=== PATIENT | female | born 1930 | race Caucasian/White ===

== ENCOUNTER → 2017-11-14 | Outpatient (CLI) | payer OTHER, BC ==
--- NOTE | 2017-11-14 12:29 | DIAGNOSTIC IMAGING REPORT ---
PET/CT SKULL-THIGH CLINICAL HISTORY: 87 years-old Female presenting with MALIGNANT NEOPLASM, concern for liver metastases, concern for osseous metastases in T11 in the right superior iliac crest, history of breast cancer diagnosed in 2015 treated with lumpectomy and chemotherapy, history of hysterectomy. TECHNIQUE: PET/CT was performed from the base of the skull through the proximal thighs following the intravenous administration of 14.988 mCi of F18-FDG. Blood glucose level 169 mg/dL. The injection was performed at 9:17 AM and imaging began at 10:[address] was performed for attenuation correction purposes and anatomic localization. COMPARISON: None. CT DOSE (mGy.cm): The estimated cumulative dose is 1156.30. FINDINGS: Head and neck: No FDG-avid mass in the visualized portion of the head or neck. No FDG avid or enlarged lymph nodes in the neck. Chest: Postsurgical changes of the left breast from prior lumpectomy. A small photopenic low-density collection consistent with seroma noted at the operative site in the posterior third of the upper inner quadrant. Overlying skin thickening of the right breast suggests post radiation change. Subcentimeter mediastinal lymph nodes, nonspecific. No FDG avid or pathologically enlarged lymph nodes. Atherosclerosis of the aorta. Normal heart size. Coronary artery calcification. No pericardial or pleural effusion. Minimal dependent changes likely atelectasis. Minimal nodularity at the dependent left lower lobe likely also atelectasis (series 2 image 99). No FDG avid focal nodule or infiltrate. Central airways patent. Abdomen and pelvis: Interval ill-defined morphologically suspicious lesions throughout the liver. However, these are not FDG avid. Moderate pancreatic parenchymal atrophy. Otherwise normal distribution of radiotracer in the gastrointestinal and genitourinary tracts. Post surgical changes of hysterectomy. Moderate stool burden in the rectum. Scattered diverticula in the colon. No bowel obstruction. No FDG avid or enlarged lymphadenopathy in the abdomen or pelvis. Atherosclerosis. Musculoskeletal: Degenerative changes of the spine. Mild compression deformity of T11 with focal FDG avidity and suspected underlying lytic changes of the vertebral body. No significant retropulsion of fracture fragments. Focal FDG avid lesion at the right iliac crest, which is minimally apparent as a lytic region with cortical disruption on anatomic imaging (series 2 image 157). IMPRESSION: 1. Initial PET/CT demonstrates FDG avid pathologic compression deformity of T11 and FDG avid lesion in the right iliac crest aerated these are concerning for osseous metastatic disease. 2. Numerous morphologically suspicious lesions throughout the liver are photopenic and indeterminate. Given their suspicious morphology, further evaluation with contrast enhanced MR of the liver or percutaneous targeted ultrasound-guided biopsy recommended. Electronically signed by: Maurisio Gr M.D. 11/14/2017 12:28 PM Dictated Date/Time: 11/14/2017 12:15 PM
== END | disposition home or self-care (01) ==
LOC: C.PET 08:42
PROVIDERS: ATTEND Physician Assistant Medical
DX: K76.9 Liver disease, unspecified (principal); C80.1 Malignant (primary) neoplasm, unspecified

== ENCOUNTER → 2017-11-21 | Outpatient (CLI) | payer OTHER, BC ==
[~2017-11-21] MED LIST: GADOXETATE DISODIUM (NON-WT BASED PROCEDURE) IV PRN
--- NOTE | 2017-11-21 06:50 | DIAGNOSTIC IMAGING REPORT ---
ORBIT RADIOGRAPHS 3 VIEWS HISTORY: pre-MRI screening. COMPARISON: None. FINDINGS: There are no radiopaque foreign bodies identified within the orbits. IMPRESSION: No radiopaque foreign bodies identified within the orbits. Electronically signed by: Burton Owusu M.D. 11/21/2017 6:49 AM Dictated Date/Time: 11/21/2017 6:48 AM
--- NOTE | 2017-11-21 08:24 | DIAGNOSTIC IMAGING REPORT ---
MRI OF THE ABDOMEN COMBO CLINICAL HISTORY: Breast cancer. Liver lesions. COMPARISON STUDY: PET/CT dated 11/14/2017. TECHNIQUE: MRI of the abdomen is performed transverse T1 and T2-weighted sequences in the axial and coronal planes. Contrast enhanced sequences were acquired following the IV administration of 10 cc of Eovist. Diffusion-weighted and subtraction imaging were performed. MRCP images were acquired. The examination is compromised by motion artifact. FINDINGS: Lower chest: No pleural effusion is identified. The heart is top normal in size and without pericardial effusion. There is a moderate to large hiatal hernia. Liver: The liver is normal in size and contour. No intrahepatic biliary ductal dilatation is seen. The hepatic veins and portal veins are patent. There are too numerous T2 hyperintense targetoid appearing hepatic lesions. The largest lesion is in the right lobe and measures up to 2.6 cm These lesion demonstrate peripheral postcontrast enhancement, show restricted diffusion, and do not retain Eovist on the delayed sequences. Gallbladder/MRCP: The gallbladder is normal in appearance. No gallstones are identified. The common bile duct measures up to 7 mm in diameter. No filling defects are seen to indicate choledocholithiasis. The pancreatic duct is normal in appearance. Spleen: Normal in size and signal intensity. Pancreas: Unremarkable. Adrenal glands: Unremarkable. Kidneys: The kidneys demonstrate cortical atrophy and are without hydronephrosis. The kidneys enhance and excrete symmetrically. Abdominal aorta: Normal in course and caliber. Bowel: Visualized portions of the small bowel and colon show no evidence of obstruction. Peritoneum: There is no abdominal ascites. Lymphadenopathy: None. Skeletal structures: Degenerative change and scoliosis are noted throughout the imaged spine. There is a compression deformity of T11 with associated marrow edema. 11 mm enhancing lesion is seen within the anterior aspect of the L1 vertebral body. IMPRESSION: 1. The liver is infiltrated with too numerous to count targetoid appearing lesions as detailed above. These should be considered metastatic disease until proven otherwise. Other etiologies such as abscess/infection are considered less likely. Clinical correlation will be required. 2. There is a compression deformity of T11 with marrow edema. 3. An enhancing lesion is seen within the anterior aspect of the L1 vertebral body. 4. Additional findings as above. Electronically signed by: Reji Quevedo M.D. 11/21/2017 8:22 AM Dictated Date/Time: 11/21/2017 8:06 AM
== END | disposition home or self-care (01) ==
LOC: C.MRI 05:51
PROVIDERS: ATTEND Physician Assistant
DX: K76.9 Liver disease, unspecified (principal); S22.080A Wedge compression fracture of T11-T12 vertebra, initial encounter for closed fracture; X58.XXXA Exposure to other specified factors, initial encounter; M89.9 Disorder of bone, unspecified

== ENCOUNTER 2017-12-27 08:21 | Day surgery (SDC) | payer OTHER, BC ==
[~2017-12-27] VITALS: Ht 165.1 cm; Wt 82.0 kg
[2017-12-27] VITALS (7 sets, daily range): BP systolic 159–180; BP diastolic 75–89; PULSE 70–86; TEMP 36.4–37.4; O2SAT 92–96; Ht 165.1 cm; Wt 82.0 kg
[2017-12-27] MEDS ORDERED: PRLSR20 PO (08:49)
[2017-12-27] MEDS ORDERED: PRAV20TA PO (08:49)
[2017-12-27] MEDS ORDERED: CHOL1000 PO (08:51)
[2017-12-27] MEDS ORDERED: VITACAP37 PO (08:51)
[2017-12-27] MEDS ORDERED: GLC/500 PO (08:51)
[2017-12-27] MEDS ORDERED: ASPI325T39 PO (08:52)
[2017-12-27] MEDS ORDERED: TRIA37.5 PO (08:53)
[2017-12-27] MEDS ORDERED: METO100T44 PO (08:53)
[2017-12-27] MEDS ORDERED: CALC-354 PO (08:54)
[2017-12-27] MEDS ORDERED: FMR25 PO (08:56)
[2017-12-27 09:08] LABS: PLATELET COUNT 243 K/uL (130-400)
[2017-12-27 09:19] LABS: PTT PATIENT 23.8 SECONDS (21.0-31.0)
--- NOTE | 2017-12-27 10:23 | Discharge Instructions ---
Discharge Instructions Procedure Procedure Date: December 27, 2017. Reason for visit: Hx Breast Ca, Suspicious For Metastatic Ds. Discharge Discharge Date: December 27, 2017. Discharge Diagnosis: s/p liver lesion fna and core biopsy Instructions Activity Recommendations: 1 Day-May resume regular activity, 48 Hours of decreased exertion Return to School/Work: no limitations Recommended Home Diet: No Limitations Provider Instructions: ACTIVITY RECOMMENDATIONS: * Rest today. * Resume regular activity in one day. MEDICATIONS: * May take Tylenol or Ibuprofen as needed for pain. DIET: * Resume previous diet. SPECIAL CARE INSTRUCTIONS: Call your doctor if: * Temperature above 101 degrees F. * Pain not relieved by pain medicine ordered. * Increased drainage or redness from incision. * Notify your doctor with any questions or concerns. Call your doctor or go to the nearest Emergency Department if you experience: * Increased chest pain or shortness of breath. FOLLOW UP VISIT: Follow-up with Referring Physician as scheduled. Allergies Coded Allergies: Penicillins (Verified Allergy, Unknown, hives, 12/27/17) Vince Salinas Recommendations: Call your doctor if: * Temperature above 101 degrees * Pain not relieved by pain medicine ordered * There is increased drainage or redness from any incision * You have any unanswered questions or concerns. Your Doctors Instructions noted above were prepared by provider Hans Castillo. Patient Signature Section: Patient Instructions Signature Page Cachorro Hoang Patient (or Guardian) Signature/Date: I have read and understand the instructions given to me by my caregivers. Caregiver/RN/Doctor Signature/Date: The above-named patient and/or guardian has received patient instructions on this date. + Original Patient Signature Page (only) stays with chart. Please make copy for patient.
[2017-12-27] MEDS ORDERED: ACETAMINOPHEN 500 MG TAB PO PRN (10:30)
--- NOTE | 2017-12-27 10:47 | DIAGNOSTIC IMAGING REPORT ---
ULTRASOUND GUIDED FINE NEEDLE ASPIRATION AND CORE BIOPSY OF LEFT HEPATIC LOBE MASS CLINICAL HISTORY: Liver lesions. Request for biopsy. History of breast cancer. COMPARISON STUDY: MRI of the liver November 21, 2017. PROCEDURE: Sonography of the liver was performed in the demonstrated innumerable hypoechoic lesions, including a 3 cm lateral segment lesion which was targeted for biopsy. The procedure, risks and benefits were discussed with the patient including the risk of bleeding, infection and injury to adjacent structures. The patient agreed to the procedure and informed written consent was obtained. The procedure was performed by Dr. Castillo following a timeout. Skin of the abdomen was prepped and draped in sterile fashion and local anesthesia was achieved with 1% lidocaine. Under direct ultrasound guidance, 2 22-gauge fine needle aspirations of the 3 cm left hepatic lobe mass were obtained utilizing a Sophie needle. In addition, a 2 cm 18-gauge core sample was obtained. The samples were deemed preliminarily adequate by pathology. The patient tolerated the procedure well and no immediate complications were evident. IMPRESSION: Successful ultrasound guided core biopsy and fine needle aspiration of a 3 cm lateral segment hepatic mass. Electronically signed by: Hans Castillo M.D. 12/27/2017 10:46 AM Dictated Date/Time: 12/27/2017 10:44 AM
== END 2017-12-27 13:00 | disposition home or self-care (01) ==
LOC: C.ACU 08:21
PROVIDERS: ATTEND Internal Medicine Hematology & Oncology
DX: C78.7 Secondary malignant neoplasm of liver and intrahepatic bile duct (principal); Z85.3 Personal history of malignant neoplasm of breast

== ENCOUNTER → 2018-04-11 | Outpatient (CLI) | payer OTHER, BC ==
[~2018-04-11] MED LIST changes: +ASPI325T39 PO; +CALC-354 PO; +CHOL1000 PO; +FMR25 PO; -GADOXETATE DISODIUM (NON-WT BASED PROCEDURE) IV PRN; +GLC/500 PO; +METO100T44 PO; +OPTIRAY 320 IV PRN; +PRAV20TA PO; +PRLSR20 PO; +TRIA37.5 PO; +VITACAP37 PO
--- NOTE | 2018-04-11 15:03 | DIAGNOSTIC IMAGING REPORT ---
CT OF THE CHEST WITH IV CONTRAST CLINICAL HISTORY: Colon cancer. COMPARISON STUDY: CT of the abdomen November 07, 2017, PET/CT November 14, 2017 and liver MRI November 21, 2017. TECHNIQUE: Following IV administration of 93 mL of Optiray-320, helical axial images of the chest were obtained. Sagittal and coronal reconstructions were viewed as well as maximal intensity projections on an independent 3-D workstation. A dose lowering technique was utilized adhering to the principles of ALARA. CT DOSE: 810.18 mGycm FINDINGS: A precarinal lymph node has increased in size. This node measures 1.4 cm in short axis diameter. Prominent subcarinal and right hilar lymph nodes are unchanged. The heart is mildly enlarged. A moderate sized hiatal hernia is noted. Postoperative findings within the left breast are unchanged. A few small right lung nodules are noted, including a 6 mm right lower lobe nodule shown on image 132 of 261. These nodules were not identified on PET/CT of November 14, 2017. There is no consolidation to suggest pneumonia. No suspicious left lung nodules are noted. Central airways are patent. A pathologic T11 compression fracture similar in appearance to PET/CT of November 14, 2017. No new osseous lesions within the bony thorax are noted. The abdomen and pelvis will be reported separately. Innumerable hepatic metastases are better depicted on the abdominal CT. The liver is now cirrhotic appearing which may be related to treated metastases. Upper abdominal ascites is noted. IMPRESSION: 1. Mildly enlarged precarinal lymph node which raises the possibility rosie spread of disease. 2. A few small right lung nodules which measure up to 6 mm. These nodules are indeterminate and should be assessed on subsequent exams. 3. Innumerable hepatic metastases which are better depicted on the CT of the abdomen and pelvis. Please see that report for further description. Liver now cirrhotic appearing which may be related to treated metastatic disease. Upper abdominal ascites. 4. No significant change in appearance of a T11 pathologic fracture. Electronically signed by: aHns Castillo M.D. 04/11/2018 3:02 PM Dictated Date/Time: 04/11/2018 2:49 PM
--- NOTE | 2018-04-11 15:08 | DIAGNOSTIC IMAGING REPORT ---
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 TECHNIQUE: Multidetector CT of the abdomen and pelvis was performed after the administration of oral and intravenous contrast. IV contrast: 93 mL of Optiray 320. A dose lowering technique was used consistent with the principles of ALARA (as low as reasonably achievable). COMPARISON: MR from 11/21/2017 and PET/CT from 11/14/2017. CT DOSE (mGy.cm): The estimated cumulative dose is 810.18. FINDINGS: [employer] Work[employer] topogram: Unremarkable. Lung bases: Minimal basilar opacities, likely atelectasis. Normal heart size. Coronary artery calcification. Trace right pleural effusion. Liver: Nodular contour of the liver, which is new from prior. Innumerable irregular hypodense lesions scattered throughout the liver compatible with known metastatic disease. This likely represents a pseudocirrhosis morphology. Patent hepatic vasculature allowing for incomplete opacification of the hepatic veins likely due to the phase of contrast. Biliary: No intrahepatic or extrahepatic biliary ductal dilatation. Gallbladder decompressed. Pancreas: Moderate parenchymal atrophy. Spleen: Normal. Splenule noted, unchanged. Adrenal glands: Normal. Kidneys and ureters: Normal. No hydronephrosis. Bladder: Normal. Pelvic organs: Uterus surgically absent. Bowel: Moderate stool burden throughout the colon. No wall thickening. The site of the reported colon cancer is not known. No gross evidence of a colonic mass. Diverticula scattered throughout the colon. Appendix not visualized. No bowel obstruction. Moderate hiatal hernia. Peritoneal cavity: Moderate amount of abdominopelvic ascites. No gross evidence of soft tissue nodularity in the peritoneum. No pneumoperitoneum. Lymph nodes: No enlarged lymph nodes in the abdomen or pelvis. Vasculature: Atherosclerosis of the normal caliber abdominal aorta. IVC patent. Abdominal wall: Skin thickening of the left breast likely postradiation change. Musculoskeletal: Degenerative changes of the spine. No destructive osseous lesion. Significant compression deformity of T11, which was present on the prior MR. Redemonstration of the lesion within the right iliac crest. IMPRESSION: 1. No daniel evidence of a colonic mass. No bowel obstruction. 2. Interval evolution of the innumerable hepatic lesions. 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 Viability of the remaining lesions cannot be determined. Continued follow-up recommended. 3. Moderate ascites. Metastatic involvement cannot be excluded though this may be due to portal hypertension. 4. Pathologic compression deformity of T11 and osseous lesion in the right iliac crest seen on prior head CT from October. 5. Trace right pleural effusion. 6. Post radiation change of the left breast. Electronically signed by: Maurisio Gr M.D. 04/11/2018 3:06 PM Dictated Date/Time: 04/11/2018 2:49 PM
--- NOTE | 2018-04-11 17:28 | DIAGNOSTIC IMAGING REPORT ---
WHOLE-BODY BONE SCAN CLINICAL HISTORY: Colon cancer. COMPARISON STUDY: PET/CT November 14, [address] of the chest, abdomen and pelvis performed earlier today. TECHNIQUE: 27 mCi of technetium 99m MDP was injected IV at 1:30 PM on April 11, 2018. 3 hours following injection, whole body imaging was performed in the anterior and posterior projections. Spot images of the ribs were obtained. FINDINGS: Marked uptake is noted within the T11 vertebra which corresponds to a fracture shown on CT. This favors a pathologic fracture. There is a small focus of mild uptake within the left iliac bone as well as mild uptake within the right iliac crest. There is a small focus of mild uptake within the posterior left sixth rib. There is a small focus of uptake within the T10 vertebra. Mild uptake is noted within ascites. Expected soft tissue and renal uptake is present. IMPRESSION: 1. Marked radiotracer uptake within the T11 vertebra which corresponds to a fracture which is likely pathologic. 2. Several additional small foci of radiotracer uptake including bilateral iliac bone lesions and a left sixth rib lesion. These likely reflect additional skeletal metastases. Electronically signed by: Hans Castillo M.D. 04/11/2018 5:27 PM Dictated Date/Time: 04/11/2018 5:21 PM
== END | disposition home or self-care (01) ==
LOC: C.NUCL 12:19
PROVIDERS: ATTEND Internal Medicine Hematology & Oncology
DX: C50.919 Malignant neoplasm of unspecified site of unspecified female breast (principal); K76.9 Liver disease, unspecified; R18.8 Other ascites; M84.48XA Pathological fracture, other site, initial encounter for fracture; M89.9 Disorder of bone, unspecified; R91.8 Other nonspecific abnormal finding of lung field; C78.7 Secondary malignant neoplasm of liver and intrahepatic bile duct